=== PATIENT | female | born 1955 | race Caucasian/White ===

== ENCOUNTER 2019-11-23 16:28 | Outpatient (CLI) | payer OTHER ==
[~2019-11-23 16:28] MED LIST: ASPI-496 PO; BIOT5TAB PO; CHOL200074 PO; CHRO400T3 PO; CYAN25009 PO; DOXY100T PO; ESTR0.5T PO; FURO20TA3 PO; MULT-642 PO; OMEG500C PO; PROG200C10 PO; RED600TA PO; SPIR50TA4 PO; VITA400C14 PO
[2019-11-23 17:41] LABS: CREATININE 0.77 mg/dL (0.55-1.02)
[2019-11-23] MEDS ORDERED: OMNIPAQUE 350 MG/ML, 100ML BOTTLE ONE (18:13)
[2020-03-07] MEDS ORDERED: [UNRECOGNIZED DRUG - OTHER] PO (08:15)
[2020-03-07] MEDS ORDERED: TURMERIC PO (08:15)
[2020-03-07] MEDS ORDERED: BIOT10005 PO (08:15)
[2020-03-07] MEDS ORDERED: LEVO25TA4 PO (08:15)
[2020-03-07] MEDS ORDERED: PLAN450T PO (08:15)
[2020-03-07] MEDS ORDERED: KRIL1CAP31 PO (08:15)
[2020-03-07] MEDS ORDERED: K2 PO (08:15)
[2020-03-07] MEDS ORDERED: ASCO100018 PO (08:15)
[2020-03-07] MEDS ORDERED: RIZATRIPTAN PO (08:15)
[2020-03-07] MEDS ORDERED: GINGER PO (08:15)
== END 2019-11-23 23:59 | disposition home or self-care (01) ==
LOC: RAD 16:28
PROVIDERS: ATTEND Surgery
DX: R22.2 Localized swelling, mass and lump, trunk (principal); Z85.3 Personal history of malignant neoplasm of breast
CPT/HCPCS: 36415; 71260; 74177; 82565; Q9967